=== PATIENT | male | born 2000 | race Hispanic/Latino ===

== ENCOUNTER 2024-02-07 15:26 | Emergency (ER) | payer SELFPAY ==
--- NOTE | ~2024-02-07 | XR_ITS ---
EXAMINATION: XR chest 2V 02/07/2024 15:55 INDICATION: Mid chest pain status post recent fall PROCEDURE: 2 view chest COMPARISON: No prior studies for comparison. FINDINGS: The lungs are clear. The cardiomediastinal silhouette is within normal limits. There are no pleural effusions. There is no pneumothorax suspected. IMPRESSION: 1: NO ACUTE CARDIOPULMONARY DISEASE. Reviewed, dictated and finalized at location B.
[2024-02-07 15:20] VITALS: BP 118/66; PULSE 81; RESP 16; TEMP 37.3; O2SAT 100
--- NOTE | 2024-02-07 15:31 | ECG_ITS ---
Test Date: 2024-02-07 15:22:39 Measurements Intervals [place] Rate: 82 P: 70 CT: 148 QRS: 97 QRSD: 93 T: 44 QT: 335 QTc: 392 Interpretive Statements SINUS RHYTHM BORDERLINE RIGHT AXIS DEVIATION [QRS AXIS > 90] ABNORMAL ECG INTERPRETATION BASED ON A DEFAULT AGE OF 40 YEARS No previous ECG available for comparison Electronically Signed On 02-08-2024 10:13:46 CDT by Binh Connor M.D.
--- NOTE | 2024-02-07 15:31 | ED.CHESTPAIN ---
HPI - Chest Pain General Chief Complaint: Chest Pain Stated Complaint: Chest Pain Time Seen by Provider: 02/07/24 15:17 Source: patient, RN notes reviewed, old records reviewed and policy loan calculator (djiboutian) Mode of arrival: ambulatory Limitations: no limitations History of Present Illness HPI narrative: 23-year-old male presents to the [facility] with continued chest pain for 2 day. States that it woke him up out of his sleep. Reports some shortness of breath. Reports the pain has been constant. Patient reports that he tripped and fell landing on his chest. In 2 days ago. No bruising or swelling noted. Tenderness to palpation of the sternal border both right and left No treatment prior to arrival Onset (ago): day(s) (1) Treatment prior to arrival: none Review of Systems Review of Systems: All systems reviewed & are unremarkable except as noted in HPI and below Constitutional: Constitutional: Reports no additional constitutional complaints ENT: Reports system reviewed and no additional complaints, except as documented Cardiovascular: Cardiovascular: Reports as per HPI, Reports chest pain (Chest wall discomfort) and Denies dyspnea Respiratory: Respiratory: Reports no additional respiratory complaints, Denies chest congestion, Denies cough and Denies dyspnea Gastrointestinal: Gastrointestinal: Reports no additional gastrointestinal complaints, Denies abdominal pain, Denies nausea and Denies vomiting Musculoskeletal: Musculoskeletal: Reports no additional musculoskeletal complaints Integumentary/Breasts: Skin/Breast: Reports system reviewed and no additional complaints, except as docu PMFSH Comments At the time of my signature, I reviewed and agree with the nursing past medical, surgical, social, and family history. There is no relevant family history pertinent to the patient complaint. Exam Const: General: cooperative, healthy appearing, comfortable, no acute distress, well developed, alert and well nourished Nutritional Appearance: well nourished Orientation/consciousness: patient oriented x3 Limitations: no limitations HENMT: Head: normal to inspection Ears: hearing grossly normal bilaterally and external ears normal Face/Nose/Sinus: Normal external nose present, normal facial exam and face symmetric Face and sinus: normal facial exam and face symmetric Eyes: General: appearance normal, both eyes and all related structures Alignment and Position: alignment normal Periorbital: periorbital findings normal Neck: Neck: normal visual inspection, full ROM, no lymphadenopathy and no meningeal signs Chest: Chest palpation & inspection: normal inspection of the chest Chest/axillae images: 1. Discomfort with palpation. No bruising, swelling, erythema noted Resp: Effort & Inspection: normal respiratory effort and able to speak in complete sentences Auscultation: clear to auscultation bilaterally, no crackles, no rales, no rhonchi and no wheezes Cardio: Rate: regular rate Skin: General skin exam: normal color and no rashes or lesions noted Lesions: no lesions Rashes: no rashes Wounds: no wounds Neuro: General: patient oriented x3, gait normal, tone normal, moves all extremities and no meningeal signs Cognition (Neuro): normal cognition Speech: normal speech Gait exam (Neuro): Normal gait present Extrem: General: normal to inspection, full ROM, capillary refill normal and normal gait Psych: Appearance: grossly normal and well kempt Mental Status: mental status grossly normal Speech and movement: Normal speech and movement present and Clear speech present Affect: normal affect Attitude: cooperative Course Course Level of Care: Express Care Visit Vital Signs Vital signs: Vital Signs Temperature 99.1 F 02/07/24 15:20 Pulse Rate 81 02/07/24 15:20 Respiratory Rate 16 02/07/24 15:20 Blood Pressure 118/66 02/07/24 15:20 Pulse Oximetry 100 02/07/24 15:20 Oxygen Delivery Room Air 02/07/24 15:20
== END 2024-02-07 16:42 | disposition home or self-care (01) ==
PROVIDERS: Emergency Provider Nurse Practitioner
DX: S20.214A Contusion of middle front wall of thorax, initial encounter (principal); W01.0XXA Fall on same level from slipping, tripping and stumbling without subsequent striking against object, initial encounter
CPT/HCPCS: 71046; 93005; 99203; G0463